=== PATIENT | female | born 1980 | race Caucasian/White ===

== ENCOUNTER 2021-12-31 12:35 | Emergency (ER) | payer SELFPAY ==
--- NOTE | ~2021-12-31 | XR_ITS ---
XR foot RT min 3V DATE: 12/31/2021 13:08 INDICATION: Lateral pain. No known injury. TECHNIQUE: 4 views COMPARISON: None FINDINGS: There is plantar and minimal posterior calcaneal enthesopathy. No fracture or dislocation, periosteal reaction or bone destruction. No erosive changes. IMPRESSION: Calcaneal enthesopathy Reviewed, dictated and finalized at location A. IMPRESSION: Calcaneal enthesopathy
[2021-12-31 12:42] VITALS: BP 132/85; PULSE 98; RESP 20; TEMP 36.4; O2SAT 98
--- NOTE | 2021-12-31 12:56 | ED.LOWEXIN ---
HPI - Extremity Injury (Lower) General Chief Complaint: Extremity Injury, Lower Stated Complaint: right foot pain Time Seen by Provider: 12/31/21 12:45 Source: patient History of Present Illness HPI Narrative: Patient is a 41-year-old female presents the urgent care with complaints of right foot pain. Patient states that she noticed a lump on it on Friday with extreme pain. Patient states that she thinks she may have hurt her foot a year or so ago after falling on a float trip but never had it checked out. Denies of any recent new injury or trauma. Patient states that she took her hydrocodone that she takes for her fibromyalgia which did not touch her pain . 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 No other acute complaints. No acute distress noted. Patient read a plan of care. Some parts of this dictation were generated by voice recognition software and may contain typographical and/or grammatical inaccuracies. Related Data Home Medications Medication Instructions Recorded Confirmed albuterol sulfate 2.5 mg/3 mL 2.5 mg inhalation Q6H 06/14/19 12/31/21 (0.083 %) solution for nebulization albuterol sulfate 90 mcg/actuation 2 puff inhalation QID PRN Dyspnea 06/14/19 12/31/21 aerosol inhaler alprazolam 0.5 mg tablet 0.5 mg PO QID PRN Anxiety 06/14/19 12/31/21 hydrocodone 7.5 mg-acetaminophen 1 tablet PO Q4-6H PRN Pain (Scale 06/14/19 12/31/21 300 mg tablet Score 7-10) cholecalciferol (vitamin D3) 50 50 mcg PO DAILY 12/31/21 12/31/21 mcg (2,000 unit) capsule (Vitamin D3) Allergies Allergy/AdvReac Type Severity Reaction Status Date / Time Penicillins Allergy Severe Dyspnea / Verified 12/31/21 12:53 SOB Review of Systems Review of Systems: CONSTITUTIONAL: Denies fever, chills, or sweats. EYES: Denies visual changes, redness, or discharge. ENT: Denies rhinorrhea, congestion, sore throat, or otalgia. CARDIOVASCULAR: Denies chest pain, palpitations, or edema. RESPIRATORY: Denies cough or dyspnea. GASTROINTESTINAL: Denies abdominal pain, nausea, vomiting, or diarrhea. GENITOURINARY: Denies dysuria or hematuria. SKIN: Denies rash or itching. MUSCULOSKELETAL: Reports of left foot pain NEUROLOGIC: Denies headache, numbness, or weakness. All other systems reviewed are negative, except as documented in HPI. [facility] Past Medical History Medical History (Updated 12/31/21 @ 13:57 by VLAD Houser) Anxiety Asthma Back pain Bronchitis Fibromyalgia Surgical History Surgical History (Updated 06/17/19 @ 10:54 by Hilda Ziegler NP) H/O tubal ligation Previous section Social History Social History (Updated 06/17/19 @ 10:53 by Hilda Ziegler NP) Smoking packs per day: 0.5 Smoking cigarettes per day: 10.0 Years smoked: 25 Smoking pack-years: 12.50 Smoking status: Current every day smoker Gender identity (if verbalized by the patient): Female Comments At the time of my signature, I reviewed and agree with the nursing past medical, surgical, social, and family history. There is no relevant family history pertinent to the patient complaint. Exam Narrative: GENERAL: This is a well-nourished, well-developed patient, in no apparent distress. HEAD: normocephalic, atraumatic. EYES: PERRL. Sclera clear/white. Vision is grossly intact. EARS: External ears normal NOSE: External nose normal with no obvious nasal discharge, nares without redness, no rhinorrhea. THROAT: Mucous membranes moist NECK: Neck supple CARDIOVASCULAR: Regular rate and rhythm without murmurs, gallops, or rubs. RESPIRATORY: Clear to auscultation. Breath sounds equal bilaterally. No wheezes, rales, or rhonchi. SKIN: warm, intact with no suspicious lesions or rash, good texture and turgor. NEURO: awake, alert, and oriented to person, place and time. There were no obvious focal neurologic abnormalities. EXTREMITIES: Possible small deformity noted to the do
== END 2021-12-31 14:02 | disposition home or self-care (01) ==
PROVIDERS: Emergency Provider Nurse Practitioner Family
DX: S93.601A Unspecified sprain of right foot, initial encounter (principal); X58.XXXA Exposure to other specified factors, initial encounter; J45.909 Unspecified asthma, uncomplicated; M79.7 Fibromyalgia; F41.9 Anxiety disorder, unspecified; F17.210 Nicotine dependence, cigarettes, uncomplicated
CPT/HCPCS: 73630; 99213; G0463

== ENCOUNTER 2022-06-21 10:50 | Emergency (ER) | payer BC, OTHER, SELFPAY ==
--- NOTE | 2022-06-21 11:03 | ED.NAVMDI ---
HPI - Nausea/Vomiting/Diarrhea General Chief complaint: Nausea/Vomiting/Diarrhea Stated complaint: Vomiting Blood Time Seen by Provider: 06/21/22 11:03 Source: patient Mode of arrival: ambulatory Limitations: no limitations History of Present Illness HPI Narrative: Daisha is a 41-year-old female patient presenting to the clinic today with complaints of vomiting up blood. She reports she has vomited up twice with specks of blood and the blood this morning. she did this while at work so her boss told her to come in and be evaluated. This is the 1st time she has ever vomited up blood. She denies any recent weight loss or weight gain. She reports that she often has acid reflux issues. Denies any fever or chills. Denies any abdominal pain. Denies any abdominal pain after eating. She is a current smoker and drinks a pt of honey whiskey 3 times a week Related Data Home Medications Medication Instructions Recorded Confirmed alprazolam 0.5 mg tablet 0.5 mg PO QID PRN Anxiety 06/14/19 06/21/22 hydrocodone 7.5 mg-acetaminophen 1 tablet PO Q4-6H PRN Pain (Scale 06/14/19 06/21/22 300 mg tablet Score 7-10) cholecalciferol (vitamin D3) 50 50 mcg PO DAILY 12/31/21 06/21/22 mcg (2,000 unit) capsule (Vitamin D3) chlorthalidone 25 mg tablet 25 mg PO DAILY 06/21/22 06/21/22 ibuprofen 800 mg tablet See Rx Instructions .Route 06/21/22 06/21/22 .COMPLEX PRN Pain Allergies Allergy/AdvReac Type Severity Reaction Status Date / Time Penicillins Allergy Severe Dyspnea / Verified 06/21/22 11:00 SOB Review of Systems Review of Systems: Pertinent positives per HPI. Patient denies any fever, chills, rash, headache, visual changes, dizziness, cough, shortness of breath, chest pain, palpitations, diarrhea, constipation, abdominal pain, or any urinary issues. PMFSH Past Medical History Medical History Anxiety Asthma Back pain Bronchitis Fibromyalgia Surgical History Surgical History H/O tubal ligation Previous section Social History Social History Smoking packs per day: 0.5 Smoking cigarettes per day: 10.0 Years smoked: 25 Smoking pack-years: 12.50 Smoking status: Current every day smoker Gender identity (if verbalized by the patient): Female Comments At the time of my signature, I reviewed and agree with the nursing past medical, surgical, social, and family history. There is no relevant family history pertinent to the patient complaint. Exam Narrative: General: Well-developed, well nourished, in no apparent distress Head: Normocephalic, atraumatic Eyes: Pupils equally round and reactive to light bilaterally, EOM intact, sclera and conjunctive clear, no discharge, lids normal Ears: TMs intact and clear, ear canals clear, no drainage, grossly hearing normal. Nose: Nares patent, no discharge, no inflammation, no sinus tenderness. Mouth: Oropharynx without lesions or masses, good dentition, MMM. Neck: Supple, trachea midline, no enlargement of anterior or posterior cervical nodes, no thyroid masses or goiter palpable. Cardio: Regular rate and rhythm, s1 and s2 normal, no murmur appreciated. Resp: Clear to auscultation bilaterally anteriorly and posteriorly, no rhonchi, rales, wheezing or rubs Abdomen: Soft, pliable, bowel sounds present all 4 quadrants, nontender palpation, no organomegaly, no CVAT tenderness Course Course Emergency Course: Portions of this record may have been created with voice recognition software. Level of Care: Express Care Visit Vital Signs Vital signs: Vital Signs Temperature 36.7 C 06/21/22 11:09 Pulse Rate 90 06/21/22 11:09 Respiratory Rate 18 06/21/22 11:09 Blood Pressure 130/84 06/21/22 11:09 Pulse Oximetry 100 06/21/22 11:09 Oxygen Delivery Megan
[2022-06-21 11:09] VITALS: BP 130/84; PULSE 90; RESP 18; TEMP 36.7; O2SAT 100
== END 2022-06-21 11:15 | disposition home or self-care (01) ==
PROVIDERS: Emergency Provider Nurse Practitioner Family
DX: K21.9 Gastro-esophageal reflux disease without esophagitis (principal); F17.210 Nicotine dependence, cigarettes, uncomplicated; J45.909 Unspecified asthma, uncomplicated; M79.7 Fibromyalgia; F41.9 Anxiety disorder, unspecified
CPT/HCPCS: 99213; G0463

== ENCOUNTER 2024-01-21 13:21 | Emergency (ER) | payer BC, SELFPAY ==
[2024-01-21 13:44] VITALS: BP 148/96; PULSE 92; RESP 16; TEMP 37.4; O2SAT 98
--- NOTE | 2024-01-21 13:47 | ED.BACK ---
HPI - Back Pain/Injury General Chief Complaint: Back Pain/Injury Stated Complaint: back pain Time Seen by Provider: 01/21/24 14:18 Source: patient Mode of arrival: ambulatory Limitations: no limitations History of Present Illness HPI Narrative: 43 y/o female with hx fibromyalgia presented for c/o mid/lower back pain, onset 2 weeks. Denies injury, states she does lift her grandchild. Rates pain 04/01. Takes vicodin and xanax for fibro but has not had refills since 09/2023. Pain radiates to right hip at times; Denies pain radiating into the legs, numbness, tingling, weakness of the lower extremities, or change in gait, saddle paresthesia or loss of bowel or bladder. no pcp Related Data Home Medications Medication Instructions Recorded Confirmed cholecalciferol (vitamin D3) 50 50 mcg PO DAILY 12/31/21 01/21/24 mcg (2,000 unit) capsule (Vitamin D3) Allergies Allergy/AdvReac Type Severity Reaction Status Date / Time Penicillins Allergy Severe Dyspnea / Verified 06/21/22 11:00 SOB Review of Systems Review of Systems: CONSTITUTIONAL: Denies body aches, fever, chills EYES: Denies visual changes CARDIOVASCULAR: Denies chest pain, palpitations, or edema. RESPIRATORY: Denies cough or dyspnea. GASTROINTESTINAL: Denies abdominal pain, nausea, vomiting, or diarrhea. SKIN: Denies rash, itching, or wounds. MUSCULOSKELETAL: reports back pain NEUROLOGIC: Denies headache, numbness, tingling, or weakness. All systems reviewed & are unremarkable except as noted in HPI and below PMFSH Past Medical History Medical History Anxiety Asthma Back pain Bronchitis Fibromyalgia Surgical History Surgical History H/O tubal ligation Previous section Social History Social History Smoking packs per day: 0.5 Smoking cigarettes per day: 10.0 Years smoked: 25 Smoking pack-years: 12.50 Smoking status: Current every day smoker Living arrangements: with family Gender identity (if verbalized by the patient): Female Comments At time of signature, I have reviewed and agree with nursing past medical, surgical, social and family history unless otherwise noted. Please see nursing chart for further information. There is no relevant family history pertinent to the presenting complaint Exam Narrative: GENERAL: Well-appearing, appears in pain, no distress HEAD: Normocephalic, atraumatic. EYES: conjunctivae clear NECK: Supple. full ROM CHEST: Speaks in full sentences. No respiratory distress. HEART: Regular rate and rhythm. Normal and equal peripheral pulses. MUSC: No Vertebral point tenderness no lumbar paraspinal tenderness. BLEs with normal strength and sensation, normal range of motion; endorses low back pain with movement. No open wounds, or obvious deformity; alignment normal, pulse palpable and equal bilaterally, skin warm, dry, pink. Capillary refill less than 3 seconds. Gait steady. SKIN: Warm, dry, no rash. NEURO: Alert and oriented x3. Course Course Emergency Course: Patient is aware of diagnosis, understands and agrees to treatment plan. Anticipatory guidance given. Patient agrees to follow-up as directed and is aware of reasons to seek care at the emergency department. Portions of this record may have been created with voice recognition software Level of Care: Express Care Visit Vital Signs Vital signs: Vital Signs Temperature 99.4 F 01/21/24 13:44 Pulse Rate 92 01/21/24 13:44 Respiratory Rate 16 01/21/24 13:44 Blood Pressure 148/96 H 01/21/24 13:44 Pulse Oximetry 98 01/21/24 13:44 Oxygen Delivery Room Air 01/21/24 13:44 Temperature 99.4 F 01/21/24 13:44 Pulse Rate 92 01/21/24 13:44 Respiratory Rate 16 01/21/24 13:44 Blood Pressure 148/96 H 01/21/24 13:44 Pulse Oximetry
== END 2024-01-21 14:30 | disposition home or self-care (01) ==
PROVIDERS: Emergency Provider Nurse Practitioner Family
DX: M54.50 Low back pain, unspecified (principal); J45.909 Unspecified asthma, uncomplicated; M79.7 Fibromyalgia; F17.210 Nicotine dependence, cigarettes, uncomplicated
CPT/HCPCS: 99213; G0463

== ENCOUNTER 2024-06-17 13:21 | Emergency (ER) | payer BC, SELFPAY ==
[2024-06-17 13:56] VITALS: BP 147/96; PULSE 96; RESP 20; TEMP 36.8; O2SAT 98
--- NOTE | 2024-06-17 15:22 | ED.URI ---
HPI - URI/Sore Throat General Chief Complaint: Upper Respiratory Infection Stated Complaint: cough/chest tight/sob Time Seen by Provider: 06/17/24 15:15 Source: patient, RN notes reviewed and old records reviewed Mode of arrival: ambulatory Limitations: no limitations History of Present Illness HPI Narrative: 43 year old female who presents to [facility] with complaints of 5 day history of cough, chest feels tight and is having some shortness of breath, and some headache discomfort. Patient reports that she has been taking DayQuil and NyQuil for her symptoms without resolution she also has been using her inhaler without improvement in cough. MD elicited complaint: cough, rhinorrhea and nasal congestion Pertinent past history: asthma and other (bronchitis, tobacco use) Onset (ago): day(s) (5) Consistency: constant Severity: moderate Able to tolerate fluids by mouth: Yes Treatments prior to arrival: other (DayQuil nd NyQuil) Related Data Home Medications ?Medication ?Instructions ?Recorded ?Confirmed ?Last Taken ?Type albuterol sulfate 90 mcg/actuation inhalation 06/17/24 Unknown History aerosol inhaler Allergies Allergy/AdvReac Type Severity Reaction Status Date / Time Penicillins Allergy Severe Dyspnea / Verified 06/21/22 11:00 SOB Review of Systems Review of Systems: CONSTITUTIONAL: Reports malaise,no chills, sweats, or fever. EYES: Denies visual changes, redness, or discharge. ENT: Reports rhinorrhea, congestion, sinus pain, no otalgia and no sore throat. CARDIOVASCULAR: Denies chest pain, palpitations, or edema.states some tightness of chest with cough RESPIRATORY: Reports cough.? reports dyspnea. GASTROINTESTINAL: Denies abdominal pain, nausea, vomiting, diarrhea SKIN: Denies rash or itching. MUSCULOSKELETAL: Denies myalgia. NEUROLOGIC: Denies headache. All systems reviewed & are unremarkable except as noted in HPI and below PMFSH Past Medical History Medical History Back pain Anxiety Fibromyalgia Bronchitis Asthma Surgical History Surgical History H/O tubal ligation Previous section Social History Social History Smoking packs per day: 0.5 Smoking cigarettes per day: 10.0 Years smoked: 25 Smoking pack-years: 12.50 Smoking status: Current every day smoker Living arrangements: with family Gender identity (if verbalized by the patient): Female Comments At time of signature, agree with nursing past medical, surgical, social and family history. There is no relevant family history pertinent to the presenting complaint Exam Narrative: GENERAL: Well-appearing, well-nourished, and in no acute distress. HEAD: Normocephalic EYES: PERRLA, conjunctivae clear ENT: Nares clear, turbinates edematous and erythematous, clear discharge. Mucous membranes moist. TM pearly casillas with dull light reflex bilaterally; no tragal tenderness. Oropharynx erythematous without lesions. Tonsils not enlarged and without exudate, no drooling, no hoarseness, no trismus, uvula midline. NECK: Supple. No lymphadenopathy CHEST: Scattered wheezing, breath sounds equal. wheezing,norhonchi, rales, or stridor. No respiratory distress, speaks in full sentences. HEART: Regular rate and rhythm. No murmur heard. SKIN: Warm, dry, no rash. NEURO: Alert and oriented x3. PSYCH: Normal mood and affect Course Course Emergency Course: Patient is aware of diagnosis, understands and agrees to treatment plan.? Anticipatory guidance given.? Patient agrees to follow-up as directed and is aware of reasons to seek care at the emergency department. Portions of this record may have been created with voice recognition software Level of Care: Express Care Visit Vital Signs Vital signs: Vital Signs Temperature 36.8 C 06/17/24 13:56 Pulse Rate 96 06/17/24 13:56 Respiratory Rate 20 06/17/24 13:56 Blood Pressure 147/96 H 06/17/24 13:56 Pulse Oximetry 98 06/17/24 13:56 Oxygen Delivery Room Air 06/17/24 13:56 Temperature 36.8 C 06/17/24 13:56 Pulse Rate 96 06/17/24 13:56 Respiratory Rate 20 06/17/24 13:56 Blood Pressure 147/96 H 06/17/24 13:56 Pulse Oximetry 98 06/17/24 13:56 Oxygen Delivery Room Air 06/17/24 13:56 Reviewed MDM - URI/Sore Throat MDM Narrative Medical decision making narrative: Differential diagnosis considered: Nolas[place] virus, strep pharyngitis, allergic rhinitis, upper respiratory tract infection, sinusitis, rhinosinusitis, nasopharyngitis. viral pharyngitis, otitis media, otitis externa, pneumonia, bronchitis, viral cough syndrome, viral syndrome, and influenza.? Exam findings show no acute concerns or changes; patient is non-toxic appearing and is in no distress.? Patient is appropriate for outpatient treatment and follow-up. Differential Diagnosis Differential diagnosis: Likely upper respiratory infection, sinusitis, viral infection, bronchitis and other (acute cough) Medical Records Attestation: I reviewed the patient's medical records. Lab Data Attestation: I reviewed the patient's lab results. Critical Care Time Critical Care Time Critical Care Time: No Discharge Plan Discharge Clinical Impression: Acute bronchitis Qualifiers: Bronchitis organism: unspecified organism Qualified Code(s): J20.9 - Acute bronchitis, unspecified Patient Disposition: Home, Self-Care Condition: Stable Instructions: Antibiotic Form, Acute Bronchitis (ED) Additional Instructions: Increase fluids especially juices and water [id number] cough and cold medicine of your choice for your symptoms Zyrtec Claritin or Kera daily Continue your inhaler/nebulizer as directed Steroids as directed--take with food heat to the face 20-30 minutes 4-6 times a day for pain Salt water gargles, throat lozenges or throat sprays as desired Antibiotic as directed--finished the medication If your symptoms persist, change or worsen significantly before you can contact your personal physician then please, without delay, go to the emergency department for further evaluation. Follow-up with PCP in 7-10 days or sooner if needed Follow up with PCP soon in regards to your blood pressure which is elevated above threshold for referral. Blood pressure above 120/80 may indicate pre-hypertension. 147/96 Patient Language: Greek Prescriptions: New prednisone 50 mg tablet 50 mg PO DAILY Qty: 5 0RF albuterol sulfate 90 mcg/actuation HFA aerosol inhaler 2 puff inhalation QID PRN (Reason: shortness of breath or wheezing) Qty: 8.5 0RF Rx Instructions: What ever is covered with her insurance azithromycin 250 mg tablet See Rx Instructions .ROUTE .COMPLEX Qty: 6 0RF Rx Instructions: For 250 mg dose pack: take 500 mg today (day 1), then 250 mg for 4 days (days 2-5) No Action albuterol sulfate 90 mcg/actuation HFA aerosol inhaler INHALATION Follow-up/Referrals: PHYSICIAN,SHINGLE GRADER [Primary Care Provider] - Time of Disposition: 15:30 Quality [place] Coma Scale Eyes: Open Verbal: Oriented and Alert Motor: Follows Commands Hai Coma Total Score: 15
== END 2024-06-17 15:41 | disposition home or self-care (01) ==
PROVIDERS: Emergency Provider Registered Nurse
DX: J20.9 Acute bronchitis, unspecified (principal); J45.909 Unspecified asthma, uncomplicated; F17.210 Nicotine dependence, cigarettes, uncomplicated
CPT/HCPCS: 99213; G0463

== ENCOUNTER 2025-02-17 13:08 | Emergency (ER) | payer BC, SELFPAY ==
[2025-02-17 13:16] VITALS: BP 150/86; PULSE 18; RESP 18; TEMP 36.7; O2SAT 97
--- OUTSIDE RECORDS SUMMARY | 2025-02-17 13:18 | XMS_ITS | Clinical Summary ---
Author Organization [facility] Address [address] [place] [address] Care Team Providers Care Pallet Repairer Name Role Phone No, Physician Primary Care Provider [phone] Allergies Active Allergy Reactions Criticality Noted Date Comments Penicillins Shortness of breath High Reaction: Short of breath, Medications meclizine (ANTIVERT) 25 mg tablet Take 1 tablet (25 mg total) by mouth 3 (three) times a day as needed for dizziness 30 tablet 9 Active Additional Information Patient not taking.Reported on 03/14/2021 hydrOXYzine (VISTARIL) 50 mg capsule Take 1 capsule (50 mg total) by mouth 3 (three) times a day as needed for itching 30 capsule 9 Active Additional Information Patient not taking.Reported on 03/14/2021 ALPRAZolam (XANAX) 0.5 mg tablet 0 1 Active HYDROcodone-gill taminophen (NORCO) 7.5-325 mg per tablet 0 1 Active albuterol HFA (PROVENTIL HFA,VENTOLIN HFA,PROAIR HFA) 90 mcg/actuation inhaler Inhale 2 puffs every 4 (four) hours as needed for wheezing 8.5 g 4 Active benzonatate (TESSALON) 100 mg capsuleIndicati ons:Cough Take 1 capsule (100 mg total) by mouth every 8 (eight) hours 21 capsule 4 Active albuterol 2.5 mg /3 mL (0.083 %) nebulizer solution Take 3 mL (2.5 mg total) by nebulization every 6 (six) hours as needed for wheezing 75 mL 4 Active Active Problems Problem Noted Date Diagnosed Date Vitamin D deficiency 03/23/2013 Overview (09/27/2016): Vitamin D deficiency Snoring 11/19/2012 Overview (09/27/2016): Snoring Adiposity 10/05/2012 Overview (09/25/2016): Obesity Migraine 10/05/2012 Overview (09/26/2016): Migraine headache Obstructive sleep apnea syndrome 10/05/2012 Overview (09/27/2016): Obstructive sleep apnea syndrome Hypersomnia 10/05/2012 Overview (09/27/2016): Hypersomnia Headache 10/05/2012 Overview (09/27/2016): Medication overuse headache Surgical History Surgery Date Site/Laterality Comments SECTION TUBAL LIGATION Medical History Medical History Date Comments Hx Other Medical Headache, migra ine Tension headache Headache, tensi on Fibromyalgia Anxiety Bronchitis Social History Tobacco Use Types Packs/Day Years Used Date Smoking Tobacco: Every Day Smokeless Tobacco: Never Alcohol Use Standard Drinks/Week Comments Yes 0 (1 standard drink = 0.6 oz pure alcohol) pt states a few shots every few days Personal Safety Answer Date Recorded Have you ever been in or are you currently in a harmful physical or emotional relationship or is someone making you feel afraid or unsafe? Denies 10/27/2024 Comments No Sex and Gender Information Value Date Recorded Sex Assigned at Not on file Legal Sex Female 2:50 AM [employer] Gender Identity Not on file Sexual Orientation Not on file Obstetrics History Last Filed Vital Signs Vital Sign Reading Time Taken Comments Blood Pressure 121/74 10/27/2024 1:30 PM CDT Pulse 70 10/27/2024 1:30 PM CDT Temperature 36 C (96.8 F) 10/27/2024 9:23 AM CDT Respiratory Rate 16 10/27/2024 1:30 PM CDT Oxygen Saturation 96% 10/27/2024 1:30 PM CDT Inhaled Oxygen Concentration - - Weight 99.8 kg (220 lb) 10/27/2024 9:23 AM CDT Height 160 cm (5' 3) 10/27/2024 9:23 AM CDT Body Mass Index 38.97 10/27/2024 9:23 AM CDT Plan of Treatment Health Maintenance Due Date Last Done Comments Breast Cancer Screening-Mammogram 1979 Cervical Cancer Screening 1979 Colon Cancer Screening-Colonoscopy 1979 Depression Screening 1979 Hepatitis C Screening 1979 Varicella Vaccines (1 of 2 - 13+ 2-dose series) 11/07/1992 Hepatitis B Screening 11/07/1997 Regular Well Visit/Exam 18-64 11/07/1997 Pneumococcal vaccine <65 (1 of 2 - PCV) 11/07/1998 HPV Vaccines (1 - 3-dose SCDM series) 11/07/2006 DTaP/Tdap/Td Vaccine (3 - Td or Tdap) 06/08/2022 06/08/2012, 06/28/2010, 04/11/1994 Covid-19 Vaccine (2 - 2023- season) 2024 Influenza Vaccine (#1) 2025 Insurance [employer] OPEN ACCESS [employer] [facility] [place] [address] [employer] COMP[employer] GENERIC COMPENSATION Care Teams Pallet Repairer Relationship Specialty Start Date End Date No, Physician PCP - General 01/28/24
--- OUTSIDE RECORDS SUMMARY | 2025-02-17 13:19 | XMS_ITS | Clinical Summary ---
Author Organization [facility] Address [address] [place] [address] Phone Care Team Providers Care Associate Store Director Name Role Phone Nick Chaidez MD Primary Care Provider [phone] Allergies Active Allergy Reactions Criticality Noted Date Comments Penicillins Anaphylaxis 08/28/2018 Medications HYDROcodone-acet aminophen (NORCO) 7.5-325 MG Tablet Take 1 Tab by mouth every 8 hours as needed. Active ALPRAZolam (XANAX) 0.5 MG Tablet Take 0.5 mg by mouth 3 times daily as needed. Active promethazine-cod eine (PHENERGAN WITH CODEINE) 6.25-10 MG/5ML Syrup Take 5 mL by mouth every 4 hours as needed for Cough. 240 mL 08/28/2018 Active naproxen (NAPROSYN) 500 MG Tablet Take 1 Tablet by mouth 2 times daily as needed for Mild or more severe pain. 20 Tablet 10/16/2022 Active Social History Tobacco Use Types Packs/Day Years Used Date Smoking Tobacco: Every Day Cigarettes Smokeless Tobacco: Never Alcohol Use Standard Drinks/Week Comments Yes 0 (1 standard drink = 0.6 oz pur e alcohol) socially Comments No Sex and Gender Information Value Date Recorded Sex Assigned at Not on file Legal Sex Female 8:32 PM CDT Gender Identity Not on file Sexual Orientation Not on file Last Filed Vital Signs Vital Sign Reading Time Taken Comments Blood Pressure 137/82 10/16/2022 11:00 PM CDT Pulse 88 10/16/2022 11:00 PM CDT Temperature 37.2 C (99 F) 10/16/2022 7:18 PM CDT Respiratory Rate 23 10/16/2022 11:0 0 PM CDT Oxygen Saturation 97% 10/16/2022 11: 00 PM CDT Inhaled Oxygen Concentration - - Weight 101.1 kg (222 lb 14.2 oz) 10/16/2022 7:18 PM CDT Height 160 cm (5' 3) 10/16/2022 7:18 PM CDT Body Mass Index 39.48 10/16/2022 7:18 PM CDT Plan of Treatment Health Maintenance Due Date Last Done Comments Hepatitis C Virus (HCV) Screening 1980 TdaP Immunization 1980 Hepatitis B Immunization (1 of 3 - 19+ 3-dose series) 11/07/1998 Pap Smear 11/07/2000 Human Papillomavirus (HPV) Immunization (1 - 3-dose SCDM series) 11/07/2006 Cervical Cancer Screening (CCS) 11/07/2009 HPV/Cotest 11/07/2009 SARS-COV-2 Immunization ( - season) 2024 02/14/2021 Cologuard 11/07/2024 Colonoscopy 11/07/2024 Colorectal Cancer Screening 11/07/2024 Immunochemical Fecal Occult Blood 11/07/2024 Influenza Immunization (#1) 2025 Respiratory Syncytial Virus (RSV) Immunization (Adult) (1 - 1-dose 75+ series) 11/07/2054 Meningococcal Immunization (ACWY) Aged Out No longer eligible based on patient's age to complete this topic Pneumococcal Immunization Combined Aged Out No longer eligible based on patient's age to complete this topic Rotavirus Immunization Aged Out No lo nger eligible based on patient's age to complete this topic Care Teams Associate Store Director Relationship Specialty Start Date End Date Nick Chaidez MD [address] [place] [address] PCP - General Family Medicine 08/28/18
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
[2025-02-17] MEDS: TETANUS,DIPHTHERIA,AC PERTUSSIS ADULT (0.5 ML) BOOSTRIX IM (13:28)
== END 2025-02-17 13:45 | disposition home or self-care (01) ==
PROVIDERS: Emergency Provider Nurse Practitioner Family
DX: S91.331A Puncture wound without foreign body, right foot, initial encounter (principal); W25.XXXA Contact with sharp glass, initial encounter; Z23 Encounter for immunization; F17.210 Nicotine dependence, cigarettes, uncomplicated; J45.909 Unspecified asthma, uncomplicated; M79.7 Fibromyalgia
CPT/HCPCS: 90471; 90715; 99213; G0463

== ENCOUNTER 2025-03-17 10:19 | Emergency (ER) | payer BC, SELFPAY ==
--- NOTE | ~2025-03-17 | XR_ITS ---
EXAMINATION: XR knee RT min 4V, 03/17/2025 10:30 CDT HISTORY: fell onto right knee COMPARISON: No comparisons available. Findings: No acute fracture or malalignment. No significant degenerative changes. Soft tissues unremarkable. Impression: No acute fracture or malalignment. Reviewed, dictated and finalized at location A. Impression: No acute fracture or malalignment.
[2025-03-17 10:22] VITALS: BP 148/110; PULSE 107; RESP 20; TEMP 36.6; O2SAT 99
--- NOTE | 2025-03-17 10:31 | ED_ITS ---
HPI - Extremity Injury (Lower) General Chief Complaint: Extremity Injury, Lower Stated Complaint: right knee pain/injury Time Seen by Provider: 03/17/25 10:32 Source: patient, RN notes reviewed and old records reviewed Mode of arrival: ambulatory Limitations: no limitations History of Present Illness HPI Narrative: 44 year old female who presents to [facility] with complaints of tripping over her dog this morning 4:30 a.m. and landing on the hardwood floor directly on her anterior right knee. Patient reports pain to her anterior knee with pain with bending and with ambulation. Patient states that she took Tylenol migraine medication this morning. Patient is able to bend her knee no acute swelling noted, pulses palpable to right leg. MD complaint: knee injury (right) Onset (ago): hour(s) (this morning at 0430) Injury: Right: knee Type of Injury: blunt Place: home Severity scale (1-10): 4 Treatments prior to arrival: other (Tylenol Migraine) Related Data Home Medications ?Medication ?Instructions ?Recorded ?Confirmed ?Last Taken ?Type No Home Medications 03/17/25 03/17/25 U nknown History Allergies Allergy/AdvReac Type Severity Reaction Status Date / Time Penicillins Allergy Severe Dyspnea / Verified 03/17/25 10:40 SOB Review of Systems Review of Systems: CONSTITUTIONAL: Denies fever, chills, or sweats. EYES: Denies visual changes, redness, or discharge. ENT: Denies rhinorrhea, congestion, sore throat, or otalgia. CARDIOVASCULAR: Denies chest pain, palpitations, or edema. RESPIRATORY: Denies cough or dyspnea. GASTROINTESTINAL: Denies abdominal pain, nausea, vomiting, or diarrhea. GENITOURINARY: Denies dysuria or hematuria. SKIN: Denies rash or itching. MUSCULOSKELETAL: Denies back pain,positive for pain to her right knee anterior aspect from fall onto knee this morning, or myalgia. NEUROLOGIC: Denies headache, numbness, or weakness. PSYCHIATRIC: Denies anxiety or depression. All systems reviewed & are unremarkable except as noted in HPI and below PMFSH Past Medical History Medical History Back pain Anxiety Fibromyalgia Bronchitis Asthma Surgical History Surgical History H/O tubal ligation Previous section Social History Social History (Updated 03/18/25 @ 07:37 by Hilda Ziegler NP) Smoking packs per day: 0.5 Smoking cigarettes per day: 10.0 Years smoked: 25 Smoking pack-years: 12.50 Smoking status: Current every day smoker Alcohol intake: unknown Substance use: former Last use: was formerly on hydrocodone for 5 years as treatment for fibromyalgia Living arrangements: with family Gender identity (if verbalized by the patient): Female Comments At time of signature, agree with nursing past medical, surgical, social and family history. There is no relevant family history pertinent to the presenting complaint Exam Narrative: GENERAL: Well-appearing, well-nourished, and in no acute distress. HEAD: Normocephalic, atraumatic. EYES: PERRLA and EOMI. ENT: Nares clear, no rhinorrhea or epistaxis. Mucous membranes moist. NECK: Supple.no lymphadenopathy CHEST: Clear to auscultation. No respiratory distress. dry cough noted is smoker SAO2 99% on room air HEART: Regular rate and rhythm. No murmur heard. Normal peripheral pulses. ABDOMEN: Soft, nontender, nondistended, normal active bowel sounds. EXTREMITIES: Normal range of motion. No edema. reports pain to anterior right knee with no swelling or bruising noted, reports fall directly onto anterior knee this morning, states increased pain with bending and ambulation strong pedal pulse to right foot, no medial or lateral knee pain or posterior pain on examination. SKIN: Warm, dry, no rash. NEURO: No focal deficits. Alert and oriented x3. Course Course Emergency Course: Patient is aware of diagnosis, understands and agrees to treatment plan.? Anticipatory guidance given.? Patient agrees to follow-up as directed and is aware of reasons to seek care at the emergency department. Portions of this record may have been created with voice recognition software Level of Care: Express Care Visit Vital Signs Vital signs: Vital Signs Temperature 36.6 C 03/17/25 10:22 Pulse Rate 107 H 03/17/25 10:22 Respiratory Rate 20 03/17/25 10:22 Blood Pressure 148/110 H 03/17/25 10:22 Pulse Oximetry 99 03/17/25 10:22 Oxygen Delivery Room Air 03/17/25 10:22 Temperature 36.6 C 03/17/25 10:22 Pulse Rate 72 03/17/25 11:18 Respiratory Rate 20 03/17/25 10:22 Blood Pressure 133/87 03/17/25 11:18 Pulse Oximetry 99 03/17/25 10:22 Oxygen Delivery Room Air 03/17/25 10:22 Reviewed MDM - Extremity Injury (Lower) Differential Diagnosis Differential diagnosis: Likely acute internal derangement of knee and other ( contusion right knee, fall, pain to right anterior knee,patellar fracture) Medical Records Attestation: I reviewed the patient's medical records. Imaging Data My impression: no acute malalignment or any fracture noted, soft tissues unremarkable Radiologist's impression: [facility] [email or web address] [place] [id number] XRay Report Signed Patient: Daisha Nichols : 1980 MR#: [id number] Age: 44 Acct:[id number] Loc: [facility] ADM Date: 03/17/25Attending Dr: Ordering Physician: Hilda Ziegler APRN Date of Service: 03/17/25 Procedure(s): XR knee RT min 4V Accession Number(s): [id number] cc: SOOT BLOWER PHYSICIAN; Hilda Ziegler APRN~ EXAMINATION: XR knee RT min 4V, 03/17/2025 10:30 CDT HISTORY: fell onto right knee COMPARISON: No comparisons available. Findings: No acute fracture or malalignment. No significant degenerative changes. Soft tissues unremarkable. Impression: No acute fracture or malalignment. Reviewed, dictated and finalized at location A. Please be advised this is a medical document. It is intended for [id number] communication. It is written in medical language and may contain unfamiliar abbreviations or verbiage. Medical documents are intended to carry relevant information, facts as evident, and the clinical opinion of the practitioner at the time of the encounter. This report may have been done utilizing a voice recognition system. Attempts frank ve been made to correct errors. However, there may be uncorrected grammatical, spelling, and recognition errors present. The file time of this note does not necessarily represent the time of service. Dictated By: Ren Metcalf MD 03/17/25 1053 Signed By: <Electronically signed by Ren Metcalf MD in OV> Critical Care Time Critical Care Time Critical Care Time: No Discharge Plan Discharge Clinical Impression: Knee pain, right Qualifiers: Chronicity: acute Qualified Code(s): M25.561 - Pain in right knee Patient Disposition: Home Instructions: Knee Pain (ED) Additional Instructions: Elastic wrap as directed for comfort for the next 5-7 days Tylenol for lesser pain take per bottle directions Ibuprofen regularly for the next 2-3 days for the inflammation take as prescribed per bottle direction Follow-up with orthopedic surgeon if continued pain or concerns Follow-up with PCP if further problems or concerns Ice to the area 20-30 minutes 4-6 times a day Elevate above heart If your symptoms persist, change or worsen significantly before you can contact your personal physician then please, without delay, go to the emergency depart ment for further evaluation. Follow-up with PCP in 7-10 days or sooner if needed Follow up with PCP soon in regards to your blood pressure which is elevated above threshold for referral. Blood pressure above 120/80 may indicate pre- hypertension.148/110 rechecked 133/87 Patient Language: Maltese Prescriptions: No Action No Home Medications Follow-up/Referrals: PHYSICIAN,SOOT BLOWER [Primary Care Provider, Internal Medicine] Stand Alone Forms: Work/School Release IP Time of Disposition: 11:12 Quality [place] Coma Scale Eyes: Open Verbal: Oriented and Alert Motor: Follows Commands Hai Coma Total Score: 15
[2025-03-17 11:18] VITALS: BP 133/87; PULSE 72
--- OUTSIDE RECORDS SUMMARY | 2025-03-17 11:24 | XMS_ITS | Clinical Summary ---
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
--- OUTSIDE RECORDS SUMMARY | 2025-03-17 11:24 | XMS_ITS | Clinical Summary ---
Author Organization [facility] Address [address] [place] [address] Phone Care Team Providers Care Belt Loop Maker Name Role Phone Nick Chaidez MD Primary Care Provider [phone] Allergies Active Allergy Reactions Criticality Noted Date [...] Cervical Cancer Screening (CCS) 11/07/2009 HPV/Cotest 11/07/2009 Cologuard 11/07/2024 Colonoscopy 11/07/2024 Colorectal Cancer Screening 11/07/2024 Immunochemical Fecal Occult Blood 11/07/2024 Influenza Immunization (#1) 2025 SARS-COV-2 Immunization ( - season) 2025 02/14/2021 Respiratory Syncytial Virus (RSV) Immunization (Adult) (1 - 1-dose 75+ series) 11/07/2054 Meningococcal Immunization (ACWY) Aged Out No longer eligible based on patient's age to complete this topic Pneumococcal Immunization Combined Aged Out No longer eligible based on patient's age to complete this topic Rotavirus Immunization Aged Out No lo nger eligible based on patient's age to complete this topic Care Teams Belt Loop Maker Relationship Specialty Start Date End Date Nick Chaidez MD [address] [place] [address] PCP - General Family Medicine 08/28/18
== END 2025-03-17 11:24 | disposition home or self-care (01) ==
PROVIDERS: Emergency Provider Registered Nurse
DX: M25.561 Pain in right knee (principal); F17.210 Nicotine dependence, cigarettes, uncomplicated; W01.0XXA Fall on same level from slipping, tripping and stumbling without subsequent striking against object, initial encounter
CPT/HCPCS: 73564; 99213; G0463